=== PATIENT | female | born 1960 | race Caucasian/White ===

== ENCOUNTER → 2017-01-12 11:36 | Day surgery (SDC) | payer MEDICARE ==
[~2017-01-12 11:36] MED LIST: Lidocaine 1% INJ* 10 MG/ML 30 ML SDV ONE; Lidocaine 2% PF* 5 ML VIAL ONE; Propofol* 10 MG/ML 20 ML BTL IV PUSH ONE; ceFAZolin 2 GM PREMIX(*) 2 GM/50 ML BAG IVPB ONE; fentaNYL* 50 MCG/ML 2 ML VIAL (100 MCG VIAL) ONE
[2017-01-12 15:37] VITALS: BP 107/54
--- NOTE | 2017-01-13 15:22 | OP ---
OPERATIVE REPORT: DATE OF OPERATION: 01/12/17 DATE OF : 56 SURGEON: Whitney Smith MD PING PONG TABLE ASSEMBLER: HANSEL Salmon ANESTHESIOLOGIST: Bharath Hernandez DO ANESTHESIA: Local with MAC. PRE-OP DIAGNOSIS: Right middle finger trigger finger. POST-OP DIAGNOSIS: Right middle finger trigger finger. OPERATIVE PROCEDURE: Right middle finger trigger release or A1 rosina release. INDICATIONS: Tez Ludwig is a 56-year-old right hand dominant female, who has had trigger finger of the right middle finger that started almost a year ago. She has undergone 2 injections and she has failed physical therapy. At this point, she has triggering on a daily basis. She has a lot of pain at the A1 rosina and cannot fully bend her digits without significant discomfort. After discussion of the risks and benefits of the surgical versus nonoperative treatment, she has elected to proceed with surgery. Risks and benefits include but not limited to bleeding, infection, damage to nerves, vessels, surrounding structures, wound not healing, persistent pain, need for further surgery, stiffness, scarring, incomplete relief of symptoms, risk of anesthesia, she has elected to proceed. COMPLICATIONS: None. ESTIMATED BLOOD LOSS: Minimal. TOURNIQUET TIME: 9 minutes at 250 mmHg. DESCRIPTION OF PROCEDURE: The patient was greeted in the preoperative area by the attending surgeon. The correct extremity was marked and consent was confirmed. The patient was brought back to the operative suite. She was kept in a stretcher. A hand table was brought to the table and unsterile tourniquet was placed on the proximal forearm. She then underwent local and monitored anesthesia care by the anesthesiologist, after which the right hand was prepped and draped in the usual sterile fashion beginning with chlorhexidine soap, scrub , and alcohol wipe, and a final prep with ChloraPrep. The procedure was done under loupe magnification. After appropriate surgical pause indicating site, side, procedure, administration of antibiotics, 7 cc of 1% lidocaine was injected along the incision and just proximal to the incision. The Esmarch was then used to exsanguinate the limb and the tourniquet was inflated to 250 mmHg. A transverse incision was then made over the center of the A1 rosina near the palmar crease of the hand. The soft tissues were carefully dissected using the dissection scissors. The Ragnell's were then used for retraction. There was abundant synovitis above the A1 rosina. The dissection was taken down carefully to expose the rosina without causing damage to the nerves or vessels. Once the rosina was identified, a 15 blade was then used to sharply release the rosina beginning first proximally, then the scissors was used to spread to make sure there were no further adhesions proximally and then the attention was directed distally which was completely released in its entirety. The small ends of the Ragnell's were then used to pull the tendon through the wound to make sure there were no further adhesions. There was abundant synovitis about the tendons, which were carefully removed. The finger was then able to be fully flexed without difficulty. The patient was then asked to flex and extend her finger and noticed she had no triggering. The wound was then copiously irrigated with sterile saline. The wound was closed with 4-0 nylon in interrupted fashion. Sterile dressings were applied and the tourniquet was deflated for a total time of 9 minutes. She was then awoken from anesthesia and transferred to the PACU in stable condition. POSTOPERATIVE PLAN: She will be nonweightbearing. She will be discharged on pain medication as well. She will be allowed to work on hand range of motion. She will be icing and elevating. She was discharged with antibiotic as well as pain medications. DVT prophylaxis was considered but deferred due to no previous personal or family history. I will see the patient back in 10 to 14 days. [id number]/CPS #: [id number] MTDD
== END | disposition home or self-care (01) ==
LOC: OREAST 11:36
PROVIDERS: ATTEND Orthopaedic Surgery
DX: M65.331 Trigger finger, right middle finger (principal); Z87.891 Personal history of nicotine dependence; I10 Essential (primary) hypertension
CPT/HCPCS: J0690; J2001; J2704; J3010